=== PATIENT | male | born 1975 | race Caucasian/White ===

== ENCOUNTER 2017-04-13 05:12 | Inpatient (IN) | payer OTHER ==
[~2017-04-13] VITALS: Ht 180.3 cm; Wt 133.4 kg
[~2017-04-13 05:12] MED LIST: AUGMENTIN875 MG PO; DILANTIN100 MG PO; HYDROCHLOROTHIA25 MG PO; HYDROCODON-ACE1 EAC7 PO; LISINOPRIL-HCT1 EAC3 PO; LISINOPRIL40 MG PO; LORTAB 5-325 M1 EACH PO; METFORMIN HCL1000 MG PO; NAPROSYN500 MG PO; NOHOMEMEDS; NORCO 7.5/321 TABLET PO; PERCOCET 5/31 TABLET; PERIDEX1 ML MM; PREDNISONE20 MG PO; SIMVASTATIN20 MG PO; TESSALON PERLE100 MG PO; ZESTORETIC 20-1 EAC1 NG; ZITHROMAX250 MG PO
[2017-04-13 06:03] LABS: HEMATOCRIT 45.8 % (38.0-50.0); HEMOGLOBIN 16.3 G/DL (12.5-16.6); MCH 31.8 PG (29.0-34.0); MCHC 35.6 G/DL (30.0-36.0); MCV 89.5 FL (86-99); PLATELET COUNT 115 K/uL (156-360); RBC DIS.WIDTH-SD 46.2 % (39-53); RED BLOOD COUNT 5.12 M/uL (4.00-5.50); WHITE BLOOD COUNT 7.7 K/uL (4.1-10.2)
[2017-04-13 06:11] LABS: ALBUMIN 4.3 g/dL (3.2-4.8)
[2017-04-13 06:12] LABS: CHLORIDE 107 mEq/L (99-109); POTASSIUM 3.7 mEq/L (3.7-5.4); SODIUM 142 mEq/L (136-147)
[2017-04-13 06:14] LABS: GLUCOSE 214 mg/dL (70-99); TOTAL PROTEIN 7.2 g/dL (6.4-8.3)
[2017-04-13 06:16] LABS: TOTAL BILIRUBIN 0.4 mg/dL (0.0-1.0)
[2017-04-13 06:17] LABS: ALKALINE PHOSPHATASE 83 IU/L (3-129)
[2017-04-13 06:18] LABS: CREATININE 0.9 mg/dL (0.6-1.3); GFR ESTIMATE (CALCULATED) > 59 mL/min/ (58.99-99999)
[2017-04-13 06:19] LABS: AST (GOT) 32 IU/L (2-34); UREA NITROGEN (BUN) 10 mg/dL (9-23)
[2017-04-13 06:20] LABS: ALT (GPT) 29 IU/L (3-49)
[2017-04-13 06:21] LABS: LIPASE 33 U/L (1.0-51.0)
[2017-04-13 06:23] LABS: TROP-I INTERPRETATION NEGATIVE; TROPONIN-I < 0.01 ng/mL (0.0-0.30)
[2017-04-13 08:50] LABS: SERUM ETHYL ALCOHOL 318 mg/dL
[2017-04-13 09:06] LABS: APPEARANCE CLEAR ((CLEAR)); BILIRUBIN NEGATIVE; BLOOD SMALL; COLOR STRAW ((YELLOW)); GLUCOSE (STRIP) 150; KETONES NEGATIVE; LEUKOCYTES NEGATIVE; NITRITE NEGATIVE; PROTEIN (STRIP) NEGATIVE; SPECIFIC GRAVITY 1.015 (1.000-1.030); UROBILINOGEN 0.2 MG/DL (0.2-1.0)
[2017-04-13 09:09] LABS: BACTERIA NONE SEEN /HPF; EPITHELIAL CELLS NONE SEEN /HPF; MUCUS TRACE /LPF; RED BLOOD CELLS 0-5 /HPF (0-5); UCUL ADDED? NO; WHITE BLOOD CELLS 0-5 /HPF (0-5)
[2017-04-13] MEDS ORDERED: ACTOS30 MG PO (10:04)
[2017-04-13] MEDS ORDERED: GABAPENTIN300 MG PO ×2 (10:04→10:05)
[2017-04-13] MEDS ORDERED: ATORVASTATIN CA40 MG PO (10:05)
[2017-04-13] MEDS ORDERED: SUPER MULTIVIT1 EACH PO (10:05)
[2017-04-13] MEDS ORDERED: MELOXICAM15 MG PO (10:05)
[2017-04-13] MEDS ORDERED: COZAAR50 MG PO (10:05)
[2017-04-13] MEDS ORDERED: FLEXERIL10 MG PO (10:05)
[2017-04-13 14:31] VITALS: BP 153/81
[2017-04-13 18:46] LABS: TROP-I INTERPRETATION NEGATIVE; TROPONIN-I < 0.01 ng/mL (0.0-0.30)
[2017-04-14] VITALS: BP 159/81
[2017-04-14 01:54] LABS: TROP-I INTERPRETATION NEGATIVE; TROPONIN-I < 0.01 ng/mL (0.0-0.30)
[2017-04-14 06:43] LABS: HEMATOCRIT 47.1 % (38.0-50.0); HEMOGLOBIN 15.9 G/DL (12.5-16.6); MCHC 33.8 G/DL (30.0-36.0); MCV 91.8 FL (86-99); PLATELET COUNT 106 K/uL (156-360); RBC DIS.WIDTH-CV 13.7 % (11.8-14.6); RBC DIS.WIDTH-SD 46.6 % (39-53); RED BLOOD COUNT 5.13 M/uL (4.00-5.50); WHITE BLOOD COUNT 8.1 K/uL (4.1-10.2)
[2017-04-14 07:02] LABS: CHLORIDE 100 MEQ/L (99-109); CREATININE 0.9 MG/DL (0.6-1.3); GFR ESTIMATE (CALCULATED) > 59 mL/min/ (58.99-99999); GLUCOSE 162 mg/dL (70-99); POTASSIUM 4.4 MEQ/L (3.7-5.4); SODIUM 139 MEQ/L (136-147); UREA NITROGEN (BUN) 10 mg/dL (9-23)
[2017-04-14 07:20] VITALS: BP 180/116
[2017-04-14 15:20] VITALS: BP 178/110
[2017-04-14 16:34] LABS: BENZODIAZEPINES, URINE SCREEN Negative (200 ng/mL)
[2017-04-14 23:59] VITALS: BP 134/70
[2017-04-15 06:54] LABS: BASOPHIL (%) 0.6 % (0-1); EOSINOPHIL (%) 1.2 % (0-5); EOSINOPHIL COUNT 0.1 K/uL (0-0.3); HEMATOCRIT 46.2 % (38.0-50.0); HEMOGLOBIN 15.8 G/DL (12.5-16.6); IMMATURE GRANULOCYTE (%) 0.2 % (0.0-0.7); LYMPHOCYTE (%) 41.5 % (15-42); LYMPHOCYTE COUNT 2.1 K/uL (1.0-2.8); MCH 30.9 PG (29.0-34.0); MCHC 34.2 G/DL (30.0-36.0); MCV 90.2 FL (86-99); MONOCYTE (%) 9.8 % (3-12); MONOCYTE COUNT 0.5 K/uL (0-0.8); NEUTROPHIL (%) 46.7 % (45-76); NEUTROPHIL COUNT 2.4 K/uL (1.8-6.4); PLATELET COUNT 96 K/uL (156-360); RBC DIS.WIDTH-CV 13.2 % (11.8-14.6); RBC DIS.WIDTH-SD 44.3 % (39-53); RED BLOOD COUNT 5.12 M/uL (4.00-5.50); WHITE BLOOD COUNT 5.1 K/uL (4.1-10.2)
[2017-04-15 07:10] VITALS: BP 161/92
[2017-04-15 07:12] LABS: ALBUMIN 3.8 G/DL (3.2-4.8); ALKALINE PHOSPHATASE 68 IU/L (3-129); ALT (GPT) 19 IU/L (3-49); AST (GOT) 15 IU/L (2-34); CHLORIDE 100 MEQ/L (99-109); CREATININE 0.8 MG/DL (0.6-1.3); GFR ESTIMATE (CALCULATED) > 59 mL/min/ (58.99-99999); GLUCOSE 147 mg/dL (70-99); POTASSIUM 3.9 MEQ/L (3.7-5.4); SODIUM 137 MEQ/L (136-147); TOTAL BILIRUBIN 1.4 MG/DL (0.0-1.0); TOTAL PROTEIN 6.2 G/DL (6.4-8.3); UREA NITROGEN (BUN) 9 mg/dL (9-23)
[2017-04-15 11:02] VITALS: BP 158/86
[2017-04-15 13:46] VITALS: BP 144/83
[2017-04-15 15:50] VITALS: BP 138/73
[2017-04-15 20:22] VITALS: BP 129/59
[2017-04-16 00:13] VITALS: BP 136/64
[2017-04-16 04:00] VITALS: BP 136/64
[2017-04-16 07:24] VITALS: BP 158/98
[2017-04-16 11:15] LABS: HEMATOCRIT 44.3 % (38.0-50.0); HEMOGLOBIN 15.4 G/DL (12.5-16.6); MCH 31.9 PG (29.0-34.0); MCHC 34.8 G/DL (30.0-36.0); MCV 91.7 FL (86-99); PLATELET COUNT 96 K/uL (156-360); RBC DIS.WIDTH-CV 13.3 % (11.8-14.6); RBC DIS.WIDTH-SD 45.5 % (39-53); RED BLOOD COUNT 4.83 M/uL (4.00-5.50)
[2017-04-16 11:35] LABS: CHLORIDE 104 MEQ/L (99-109); CREATININE 0.8 MG/DL (0.6-1.3); GFR ESTIMATE (CALCULATED) > 59 mL/min/ (58.99-99999); GLUCOSE 143 mg/dL (70-99); POTASSIUM 3.8 MEQ/L (3.7-5.4); SODIUM 135 MEQ/L (136-147); UREA NITROGEN (BUN) 9 mg/dL (9-23)
[2017-04-16 12:14] VITALS: BP 168/88
[2017-04-16] MEDS ORDERED: POLYETHYLENE GL17 GM PO (15:15)
[2017-04-16] MEDS ORDERED: HYDROCODON-ACE1 EAC7 PO (15:16)
[2017-04-16 16:31] VITALS: BP 168/91
== END 2017-04-16 16:41 | disposition home or self-care (01) | DRG 392 ==
LOC: EME 05:12 → 5EAST 09:02 → EDOF 09:02 → ENRESERV 09:02 → 5EAST 14:12
PROVIDERS: Emergency Medicine; Hospitalist; Internal Medicine; Nurse Practitioner Family
PROC: 0DB68ZX Excision of Stomach, Via Natural or Artificial Opening Endoscopic, Diagnostic (ICD-10-PCS; principal; 2017-04-15)
DX: R10.11 Right upper quadrant pain (principal); D69.6 Thrombocytopenia, unspecified; E11.40 Type 2 diabetes mellitus with diabetic neuropathy, unspecified; F10.129 Alcohol abuse with intoxication, unspecified; Y90.8 Blood alcohol level of 240 mg/100 ml or more; I70.1 Atherosclerosis of renal artery; N28.1 Cyst of kidney, acquired; K22.10 Ulcer of esophagus without bleeding; K29.70 Gastritis, unspecified, without bleeding; J44.9 Chronic obstructive pulmonary disease, unspecified; M25.511 Pain in right shoulder; E78.5 Hyperlipidemia, unspecified; I10 Essential (primary) hypertension; E66.01 Morbid (severe) obesity due to excess calories; Z68.41 Body mass index [BMI] 40.0-44.9, adult; R05 Cough; R06.02 Shortness of breath; R07.81 Pleurodynia; R53.83 Other fatigue; F43.10 Post-traumatic stress disorder, unspecified; F12.90 Cannabis use, unspecified, uncomplicated; F17.210 Nicotine dependence, cigarettes, uncomplicated; Z83.3 Family history of diabetes mellitus
CPT/HCPCS: 71046; 73030; 74177; 74183; 76705; 80048; 80053; 80306 90; 81003; 82948; 83605; 83690; 84484; 85025; 85027; 85379; 88305; 88342 TC; 93005; 94799; 99281; 99285; C9113; G0480; J0360; J1170; J1650; J2250; J2270; J2405; J3010; J7030